=== PATIENT | female | born 1990 ===

== ENCOUNTER 2020-06-06 11:15 | Outpatient (RCR) | payer OTHER, SELFPAY ==
--- NOTE | 2020-06-04 13:23 | HO.PS.ADMBH ---
HPI Chief Complaint: depression Sources of Information: patient interviewed, chart reviewed and crisis/core team assessment reviewed HPI Narrative: Ms. Wu is a 30 year-old woman with hx of Bipolar Disorder who has been presenting with symptoms of depression for the past two months. She was referred to PHP by her OP psychiatrist Dr. Sailaja Aguilar. 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 She reports sleep is better with recent medication adjustments by her OP psychiatrist. She endorses anhedonia, depressed mood, anxious mood but denies suicidal ideation. She also denies hx of VH/AH. Past Psychiatric History: Inpatient: none OP: Dr. 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 lives with mother and brother. Substance History: Alcohol: occasionally Cannabis daily since age 18. Mushroom: last year. Meds/Allergies Allergies Allergies Allergy/AdvReac Type Severity Reaction Status Date / Time No Known Allergies Allergy Verified 06/04/20 08:46 Mental Status Exam Mental Status Exam Narrative: Appearance: casually groomed, fair hygiene, in NAD Behavior: calm, cooperative Psychomotor: no agitation or retardation noted Speech: clear, normal rate/rhythm/volume, spontaneous TP: linear TC: no signs of psychosis, feeling overwhelmed Mood: depressed Affect:blunted SI:none HI:none AH/VH:none Delusions:none Insight/judgment:fair x 2 Memory/cog:alert, oriented x 3. grossly intact to conversational testing. Assessment & Plan Assessment & Plan (1) Bipolar 2 disorder, major depressive episode: Status: Acute Code(s): F31.81 - Bipolar II disorder Assessment and Plan: continue current medications. Pt working with OP psychiatrist on futher medication changes. Certification I certify that partial hospital treatment is medically necessary due to the symptoms and problems resulting from the patient's mental illness and the failure to treat the patient at the partial hospital level of care would likely result in the patient requiring inpatient psychiatric care which could not be prevented at a less intensive level of care. Telehealth Telehealth Location of provider rendering services: practice address Location of patient: address on file Patient Identification confirmed using: Name, : Yes Telehealth method: video Patient verbally consented to treatment: Yes Patient verbally consented to billing insurance company: Yes Patient informed of any privacy concerns related to visit: Yes Time spent with patient (mins): 15
[2020-06-04 13:48] VITALS: BMI 19.3
--- NOTE | 2020-06-04 13:49 | PC.ADMIT ---
Patient is a 29 year old female who was referred by her out patient psychiatrist as for the past few weeks patient has been experiencing an increase in mood stability including increase in depression with passive SI, increase in anxiety and urges to self harm. Patient reports the last time she harmed herself was about 1 year ago. Patient has a dx of Bipolar II d/o. 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 She has been smoking marijuana daily smoking 2-3 bowls every evening to cope. Patient stated she is her because she wants to increase her ability to control her mood so it does not get to an extreme. Patient presents with depressed mood and affect. Denied current SI. Gave verbal permission to email her a copy of her safety plan. Asked who she contact if feeling unsafe and she stated her sister, good friends, or the family she lives with. Educated patient about the negative effects of heavy marijuana use on mental and physical health and encourged patient to attend online substance use groups for more support. Medications reconciled with patient and patient's pharmacy. Patient reports taking medications as prescribed. Reports decreased appetite however has been maintaining her current weight and getting increased sleep about 10 hrs a night. Reports difficulty falling and staying asleep.
--- NOTE | 2020-06-05 15:09 | PC.NURSE ---
Case opened in treatment team
--- NOTE | 2020-06-05 15:11 | PC.NURSE ---
I spoke with the client to review her tx plan we discussed goal and treatment process. She states that she is not sure that she needs this level of care or if we can meet her needs. She states that she will think about it and let me know tomorrow. We decided if she should stay her last day would be 06/24/20
--- NOTE | 2020-06-06 15:04 | PC.NURSE ---
The client called after group to inform me that today will be her last day. She states that although she likes the program she feels that she has too much going on in her life to do such a time intensive program. She states that she is safe and will be continuing with her out patient providers and a weekly support group that is provided by her therapist.
--- NOTE | 2020-06-06 15:12 | PC.NURSE ---
Spoke with pt's therapist to inform her that pt decided to not attend the program.
== END 2020-06-06 23:55 | disposition left against medical advice (07) ==
LOC: HO.PHPA 11:15
PROVIDERS: Visit Provider Psychiatry & Neurology Psychiatry
DX: F31.81 Bipolar II disorder (principal); F12.20 Cannabis dependence, uncomplicated
CPT/HCPCS: 90791; 90853